=== PATIENT | female | born 1950 | race Two or more races ===

== ENCOUNTER → 2025-06-28 | Outpatient (CLI) | payer SELFPAY ==
[2025-06-28 13:13] LABS: Albumin, Serum 3.8 gm/dL (3.4-4.8); Anion Gap 10 (7-16); BUN/Creatinine Ratio 15 Ratio (12-20); Blood Urea Nitrogen 9 mg/dL (9-23); Calcium 9.1 mg/dL (8.3-10.6); Calcium (Corrected) 9.3 mg/dL (8.5-10.1); Carbon Dioxide 30.1 mMol/L (20.0-31.0); Chloride 106 mMol/L (98-107); Creatinine (Component) 0.6 mg/dL (0.6-1.3); Glucose 93 mg/dL (74-106); Osmolality,Calculated 289 (275-295); Phosphorous 3.6 mg/dL (2.4-5.1); Potassium 4.0 mMol/L (3.4-5.1); Sodium 146 mMol/L (136-145); eGFR > 60 See Note
== END | disposition home or self-care (01) ==
LOC: COPL 11:40
PROVIDERS: PCP Physician Assistant; Referring Provider Physician Assistant; Visit Provider Physician Assistant
DX: Q28.2 Arteriovenous malformation of cerebral vessels (principal)
CPT/HCPCS: 36415; 80069

== ENCOUNTER → 2025-06-29 | Outpatient (CLI) | payer MEDICARE, SELFPAY ==
--- NOTE | 2025-06-29 09:30 | XR_ITS ---
Examination: MRI of brain without intravenous contrast. MRI brain with intravenous contrast. Date and time of exam: June 29, 2025, 1032 hours INDICATIONS: Diagnosis arteriovenous malformation cerebral vessels, numbness weakness right side of the body stroke alert 05/21/2024, acute hemorrhage 5 x 4 x 3 cm medial left frontal parietal lobe, adjacent subarachnoid hemorrhage and subdural hemorrhage cerebral falx on CT brain scan 05/21/2024 Technique: Multiple axial and sagittal images of the brain to been obtained. Siemens high-resolution 1.52 Irais short bore scanner utilized. Sagittal sections, T1 weighted images, TR 500, TE 14, are performed. Axial sections proton-density and T2-weighted images have been obtained. Inversion recovery axial images, TR 9260, TE 111, TR 2500. Diffusion weighted images, axial sections, TR 4800, TE 128, B value 1000. Axial sections, ADC map, TR 4800, TE 128. Axial and coronal images were also obtained post 10 cc gadolinium administered intravenously. Findings:: Enlargement of the sella turcica is not present. The optic chiasm and infundibular stalk are not remarkable. There is no localized enlargement of the medulla or ruma. Fourth ventricle and cerebellar tonsils appear normal in position. No subacute area of hemorrhage density is seen. Fourth ventricle is midline. Mass in the cerebellopontine angle region is not evident. 7th and 8th nerve complexes exhibit symmetry Globes are symmetrical Orbital musculature including medial lateral rectus muscles do not exhibit abnormality Increased white matter signal is very prominent, old hemorrhage in the high medial left parietal lobe Effacement of the cortical sulcal markings is not identified. Mass effect upon the ventricular system is not identified. 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
--- NOTE | 2025-06-29 10:15 | XR_ITS ---
Examinations: MRA brain without intravenous contrast. 3-D vascular reconstructions Date and time of exam: June 29, 2025, 1032 hours Numbness weakness in the right side of the face post stroke 05/21/2024 Technique: MRA brain images without contrast obtained, including 3-D postprocessing, vascular maximum intensity projection images Findings: The cerebral images do not actually include the convexity of the brain The visualized anterior cerebral and middle cerebral and posterior cerebral branches are unremarkable No cerebral aneurysmal dilatation IMPRESSION: Limited angiographic reconstructions, which do not include the convexity of the parietal lobes at the site of the prior hemorrhage and enhancement in the medial high left parietal lobe noted on the brain MRI today Consider four-vessel cerebral angiography follow-up
== END | disposition home or self-care (01) ==
PROVIDERS: PCP Physician Assistant; Referring Provider Physician Assistant; Visit Provider Physician Assistant
DX: R90.82 White matter disease, unspecified (principal)
CPT/HCPCS: 70544; 70553; A9577

== ENCOUNTER 2025-08-22 11:05 | Emergency (ER) | payer MEDICARE, SELFPAY ==
[2025-08-22] VITALS (9 sets, daily range): BP systolic 127–176; BP diastolic 70–105; PULSE 66–80; RESP 15–22; TEMP 36.9; O2SAT 97–99; BMI 24.4
--- NOTE | 2025-08-22 11:26 | EKG_ITS ---
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
--- NOTE | 2025-08-22 11:43 | XR_ITS ---
Examination: CT brain head without contrast. 2-D sagittal coronal reconstructions Date and time of exam: August 22, 2025, 1229 hours, comparison 05/21/2024 INDICATIONS: Onset weakness and dizziness today CTDI: vol (mGy): 45.7 DLP: (mGycm): 893 Technique: Multiple CT axial sections of the brain have been obtained, 5 mm slice thickness. Contrast has not been administered. 2-D sagittal, coronal reconstructions have been obtained Low dose protocols were performed. One or more of the following dose reduction techniques were used; automated exposure control, adjustment of the mA and/or KV according to patient size, use of iterative reconstruction technique. Findings: 10 mm hemorrhage in the left frontal parietal lobe which appears to be new compared to the 05/21/2024 exam Encephalomalacia also in this region from the patient's prior larger hemorrhage Ventricles are mildly enlarged No mass effect upon the ventricular system Very subtle hyperdensity in the left caudate nucleus, which may also represent hemorrhage, image 18 No midline shift Cranial vault intact IMPRESSION: New area of hemorrhage in the left frontal parietal lobe Possible new subtle hemorrhage in the left caudate nucleus
--- NOTE | 2025-08-22 11:43 | PD.EDRME ---
Rapid Medical Screening Exam RME Arrival date/time: 08/22/25 11:05 75-year-old female with history significant for stroke presents to the department today for complaints of dizziness Chief Complaint: Dizziness Vital signs: Vital Signs Temperature 98.5 F 08/22/25 11:18 Pulse Rate 74 08/22/25 11:18 Respiratory Rate 16 08/22/25 11:18 Blood Pressure 156/70 H 08/22/25 11:18 Pulse Oximetry (%) 97 08/22/25 11:18 Oxygen Delivery Method Room Air 08/22/25 11:18 Vital signs reviewed by provider: Yes Exam: On exam well-appearing does not appear ill or toxic Clinical Impression: Lab work, imaging, EKG obtained
[2025-08-22] MEDS: MECLIZINE HCL 25 MG TABLET PO (12:12)
[2025-08-22 12:19] LABS: Basophils # (Auto) 0.1 Thou/mm3 (0.0-0.2); Basophils % (Auto) 1 % (0-2.5); Eosinophils # (Auto) 0.2 Thou/mm3 (0.0-0.5); Eosinophils % (Auto) 4 % (0-10); Hematocrit 38.1 % (36.0-46.0); Hemoglobin 12.5 g/dL (12.0-16.0); Immature Granulocytes Auto 0.01 Thou/mm3 (0.00-0.00); Lymphocytes # (Auto) 1.2 Thou/mm3 (1.0-4.8); Lymphocytes % (Auto) 33 % (10-50); Mean Corpuscular HGB Conc 32.8 g/dl (31.0-37.0); Mean Corpuscular Hemoglobin 30.9 pg (25.0-35.0); Mean Corpuscular Volume 94 fL (80-100); Monocytes # (Auto) 0.4 Thou/mm3 (0.0-0.8); Monocytes % (Auto) 11 % (0-12); Neutrophils # (Auto) 1.9 Thou/mm3 (1.8-7.7); Neutrophils % (Auto) 50 % (37-80); Nucleated Red Blood Cell # 0.00 Thou/mm3 (0.00-0.00); Nucleated Red Blood Cell % 0 /100 WBC (0); Platelet Count 195 Thou/mm3 (140-440); RDW Standard Deviation 43.1 fL (36.4-46.3); Red Blood Count 4.04 Miln/mm3 (4.00-5.20); White Blood Count 3.8 Thou/mm3 (3.6-11.0)
--- NOTE | 2025-08-22 12:30 | PC.NURSE ---
pt came in due to dizziness and vision changes and seeing spots on and off for a few months. pt stated that it gets worse with movements. pt placed on monitor/pulse oc and has iv line to left ac. pt was given med for dizziness po per md. family at bedside. pt pending results of ct and labs. pt has hx of cva in 2023 which she has weakness to rt side arm and unable to move rt leg and is in wheelchair.
[2025-08-22 12:36] LABS: INR 1.0 (0.9-1.3); Partial Thromboplastin Time 28.1 Seconds (22.0-36.0); Prothrombin Time 10.8 Seconds (9.0-12.2)
[2025-08-22 12:39] LABS: Alanine Aminotransferase 55 U/L (10-49); Albumin, Serum 4.3 gm/dL (3.4-4.8); Albumin/Globulin Ratio 1.8 (1.2-2.2); Alkaline Phosphatase 57 U/L (46-116); Anion Gap 8 (7-16); Aspartate Amino Transferase 70 U/L (0-34); BUN/Creatinine Ratio 17 Ratio (12-20); Bilirubin,Total 0.5 mg/dL (0.3-1.2); Blood Urea Nitrogen 10 mg/dL (9-23); Calcium 9.1 mg/dL (8.3-10.6); Calcium (Corrected) 9.1 mg/dL (8.5-10.1); Carbon Dioxide 32.7 mMol/L (20.0-31.0); Chloride 103 mMol/L (98-107); Creatinine (Component) 0.6 mg/dL (0.6-1.3); Estimated Creatinine Clearance 65.9 mL/min (>60); Globulin 2.4 gm/dL (2.3-3.5); Glucose 67 mg/dL (74-106); Magnesium 1.3 mg/dL (1.6-2.6); Osmolality,Calculated 283 (275-295); Potassium 3.1 mMol/L (3.4-5.1); Sodium 144 mMol/L (136-145); Total Protein 6.7 gm/dL (5.7-8.2); Troponin I < 0.020 ng/mL (0.0-0.045); eGFR > 60 See Note
[2025-08-22 12:53] LABS: B-Type Natriuretic Peptide 48 pg/mL (0-100)
--- NOTE | 2025-08-22 12:57 | PD.EDDIZZY ---
ED Dizzyness RME/HPI General Chief Complaint: Dizziness Stated Complaint: DIZZINESS, NUMBNESS IN LEGS Time Seen by Provider: 08/22/25 11:51 Arrival date/time: 08/22/25 11:05 RME / HPI RME / HPI Narrative: 08/22/25 11:05 75-year-old female with history significant for stroke presents to the department today for complaints of dizziness DR. 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 Reports the dizziness began several months ago and gradually worsening. Dizziness is aggravated with changing position and minimally improved with lying still. Patient mentioned she is scheduled to see a neurologist 10/2025 for the intermittent dizziness. Accompanied by numbness to her legs. Patient additionally complains of some urinary incontinence with foul smelling urine, no dysuria. Denies fevers, chills, sweats. Denies chest pain, cough, shortness of breath. Denies vomiting, diarrhea, constipation. Exam: On exam well-appearing does not appear ill or toxic Impression: Lab work, imaging, EKG obtained Related Data Home Medications ?Medication ?Instructions ?Recorded ?Confirmed clonazepam 1 mg tablet 1 mg PO QDAY 10/31/21 08/22/25 atorvastatin 10 mg tablet 10 mg PO DAILY 08/22/25 08/22/25 calcium 600 mg (as 1 tab PO DAILY 08/22/25 08/22/25 carbonate)-vitamin D3 10 mcg (400 unit) tablet duloxetine 30 mg capsule,delayed 60 mg PO DAILY 08/22/25 08/22/25 release levetiracetam 500 mg tablet 500 mg PO BID 08/22/25 08/22/25 Allergies Allergy/AdvReac Type Severity Reaction Status Date / Time erythromycin base (From Allergy Verified 08/22/25 11:10 E-Mycin) Review of Systems Review of Systems Systems Reviewed: All systems reviewed, normal except as documented Past Medical History Past Medical History NEUROLOGIC: Positive Neurological Disorders and Cerebrovascular Accident (2023 rt side deficit) REPRODUCTIVE: Positive Previous Pregnancies (x3) MUSCULOSKELETAL: Positive Musculoskeletal Disorders and Osteoporosis PSYCHO/SOCIAL: Positive Depression OTHER HISTORY: Positive Falls (fx neck) Family History FAMILY HISTORY: Positive Family Cancer (mother) Surgical History SURGICAL: Positive Gastric Bypass Surgery, of Back Surgery, Hysterectomy and Section (x2) Social History SMOKING STATUS: Never smoker ED Exam Narrative Physical exam: GENERAL APPEARANCE: alert and oriented x 4, well-developed, well-nourished, no acute distress HEENT: Normocephalic, atraumatic; pupils equal, round, reactive to light; EOMI; mucous membranes pink, moist; oropharynx clear NECK: Supple LUNGS: CTABL; no wheezes, no rales, no rhonchi HEART: Regular rate, regular rhythm; normal S1, S2; no murmurs ABDOMEN: non distended; normal BS; soft, no tenderness, no guarding, no rebound; no masses, no organomegaly, no hernia BACK: no CVA tenderness EXTREMITIES: right leg weakness; atraumatic; no edema NEUROLOGIC: awake; alert and oriented x4; cranial nerves II-XII grossly intact; right leg weakness otherwise no other deficits PSYCHIATRIC: appropriate mood and affect SKIN: warm, dry, normal color; no rashes Course Quality Measures none Orders Category Date Time Status EKG (ED ONLY) *Do not use* NOW Care 08/22/25 11:27 Completed Referral - Medical Office Technologist Stat Cons 08/22/25 12:[address] head/brain wo con Stat Exams 08/22/25 11:43 Completed EKG (ED Only) Stat Exams 08/22/25 11:26 Draft B-Type Natriuretic Peptide Stat Lab 08/22/25 11:54 Completed CBC Stat Lab 08/22/25 11:54 Completed Comprehensive Metabolic Panel Stat Lab 08/22/25 11:54 Completed Magnesium Stat Lab 08/22/25 11:54 Completed Partial Thromboplastin Time Stat Lab 08/22/25 11:54 Completed Prothrombin Time with INR Stat Lab 08/22/25 11:54 Completed Troponin I Stat Lab 08/22/25 11:54 Completed Urinalysis, C/S if Indicated Stat Lab 08/22/25 12:52 Completed Urine Culture Stat Lab 08/22/25 12:52 Received Magnesium Sulfate 2 GM Ivpb [Magnesium Sulfate Ivpb] Med 08/22/25 12:59 Discontinued 2 gm in 50 ml IV X1 Meclizine HCl [Antivert] Med 08/22/25 12:03 Discontinued 25 mg PO X1 ONE POTASSIUM CHL 10 mEq IVPB [Kcl Ivpb] Med 08/22/25 13:00 Discontinued 10 meq in 100 ml IV Q1H hydrALAZINE INJ [Apresoline Inj] Med 08/22/25 13:30 Discontinued 10 mg IVP X1 ONE levETIRAcetam INJ [Keppra Inj] Med 08/22/25 13:46 Discontinued 1,000 mg IVP X1 ONE Vital Signs Vital signs: Vital Signs Temperature 98.5 F 08/22/25 11:18 Pulse Rate 74 08/22/25 11:18 Respiratory Rate 16 08/22/25 11:18 Blood Pressure 156/70 H 08/22/25 11:18 Pulse Oximetry (%) 97 08/22/25 11:18 Oxygen Delivery Method Room Air 08/22/25 11:18 Pulse ox is 97% on room air which is adequate. Dizziness MDM Narrative MDM Narrative:: I, Lorena Cummings, am scribing for and in the presence of Dr. De La Cruz. 1300p: I spoke with transfer nurse and neurosurgeon Dr. Deluca at [facility]. Discussed patients PMHx, HPI, ED course, exam findings, labs, and radiology results. State because of the possible AVM, they are unable to accept the patient for transfer. 1345p: Patient has been accepted at [facility] by ED physician Dr. Pelletier. 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 ) Lab and/or radiology exams considered but not ordered:: None Interpretation Summary: Ordering Physician: Pam KOCH)Familia NP Date of Service: 08/22/25 Procedure(s): CT head/brain wo con Accession Number(s): [id number] cc: Familia Orozco NP, NP; Carloz Dillard MD~ Examination: CT brain head without contrast. 2-D sagittal coronal reconstructions Date and time of exam: August 22, 2025, 1229 hours, comparison 05/21/2024 INDICATIONS: Onset weakness and dizziness today CTDI: vol (mGy): 45.7 DLP: (mGycm): 893 Technique: Multiple CT axial sections of the brain have been obtained, 5 mm slice thickness. Contrast has not been administered. 2-D sagittal, coronal reconstructions have been obtained Low dose protocols were performed. One or more of the following dose reduction techniques were used; automated exposure control, adjustment of the mA and/or KV according to patient size, use of iterative reconstruction technique. Findings: 10 mm hemorrhage in the left frontal parietal lobe which appears to be new compared to the 05/21/2024 exam Encephalomalacia also in this region from the patient's prior larger hemorrhage Ventricles are mildly enlarged No mass effect upon the ventricular system Very subtle hyperdensity in the left caudate nucleus, which may also represent hemorrhage, image 18 No midline shift Cranial vault intact IMPRESSION: New area of hemorrhage in the left frontal parietal lobe Possible new subtle hemorrhage in the left caudate nucleus Dictated By: Carloz Dillard MD Signed By: <Electronically signed by Carloz Dilalrd MD in OV> 08/22/25 1257 Medications / Prescriptions Medications or Prescriptions considered but not ordered:: None Medication administrations:: Medication Administration History Discontinued Medications Hydralazine HCl (Hydralazine Inj 20 Mg/Ml Vial) 10 mg IVP X1 ONE Stop: 08/22/25 13:31 Last Admin: 08/22/25 13:46 Dose: 10 mg Documented By: FRANTZ Magnesium Sulfate (Magnesium Sulfate Ivpb) 2 gm in 50 mls @ 25 mls/hr IV X1 ONE Stop: 08/22/25 14:58 Last Infusion: 08/22/25 14:26 Dose: Infused Documented By: Admin: 08/22/25 13:45 Dose: 25 mls/hr Documented By: TONY Potassium Chloride (Kcl Ivpb) 10 meq in 100 mls @ 100 mls/hr IV Q1H VIKTORIYA Stop: 08/22/25 15:59 Last Infusion: 08/22/25 14:48 Dose: Infused Documented By: Admin: 08/22/25 13:44 Dose: 100 mls/hr Documented By: TONY Levetiracetam (Levetiracetam Inj 100 Mg/Ml Vial 5ml) 1,000 mg IVP X1 ONE Stop: 08/22/25 13:47 Last Admin: 08/22/25 13:56 Dose: 1,000 mg Documented By: TONY Meclizine HCl (Meclizine Hcl 25 Mg Tablet) 25 mg PO X1 ONE Stop: 08/22/25 12:04 Last Admin: 08/22/25 12:12 Dose: 25 mg Documented By: TONY See above Consultations Consultation(s) initiated? (list below): Yes Consultation #1 (Physician, Specialty, Details): See MDM Diagnosis Most likely diagnosis given after review of the tests above:: Hemorrhagic CVA Admission Indicated Admission indicated?: not indicated Explain why admission is indicated or not indicated:: Txfer for neurosurgery Admission Request Was there a request for admission?: No Disposition Plan Disposition Plan: Transfer Discharge Plan Plan Patient Disposition: [facility] Facility Pt Being Transferred to: [facility] Service Needed for Transfer: Neurosurgery Prescriptions/Referrals Prescriptions/Med Rec: No Action clonazepam 1 mg tablet 1 mg PO QDAY atorvastatin 10 mg tablet 10 mg PO DAILY levetiracetam 500 mg tablet 500 mg PO BID duloxetine 30 mg capsule,delayed release(DR/EC) 60 mg PO DAILY Patient Comments: TAKE ONE CAPSULE BY MOUTH EVERY DAY calcium carbonate-vitamin D3 600 mg-10 mcg (400 unit) tablet 1 tab PO DAILY Patient Comments: TAKE TWO TABLETS BY MOUTH EVERY DAY VITAMIN Referrals: No Primary/Family,Physician [Primary Care Provider] - In 1 week Problem List Clinical Impression: Hemorrhagic stroke Patient/Caregiver Discharge Instructions Print Language: Kiswahili Stand Alone Forms: Whit Award Info., Patient Portal Info Letter
[2025-08-22 13:03] LABS: Collection Type, Urine Clean Catch
[2025-08-22 13:15] LABS: Bacteria,Urine 4+; Bilirubin,Urine Negative (Negative); Blood,Urine Negative (Negative); Clarity,Urine Clear (Clear/Hazy); Color,Urine Lt-Yellow (Lt Yel-Yel); Culture Indicated,Urine Yes; Glucose, Urine Negative (Negative); Ketones,Urine Negative (Negative); Leukocyte Esterase,Urine Negative (Negative); Nitrite,Urine Negative (Negative); PH,Urine 6.0 (5.0-7.0); Protein,Urine Negative (Neg - Trace); RBC,Urine 1 /hpf (0-3); Specific Gravity,Urine 1.006 (1.001-1.035); Squamous Epithelial Cell,Urine < 1 /hpf (0-5); Urobilinogen,Urine Negative mg/dL (0.0-1.0); WBC,Urine 2 /hpf (0-5)
--- NOTE | 2025-08-22 13:37 | PC.CM ---
1340 Transfer nurse Ronna at [facility] called and patient has been accepted by Dr. Afshin Villalta at [facility]. She will go to the ED and the number to call and give report is [phone]. I will make transfer packet and call [facility] for state transfer. REACH is not available at this time. 1321 I conacted [facility] and initiated a transfer. 1253 I received a referal to transfer patient for hemorrhagic stroke. I called [facility] and had Dr. De La Cruz speak to [facility] ED docor Dr. Deluca. [facility] declined stating patient may need IR for angiogram.
[2025-08-22] MEDS: POTASSIUM CHL 10 mEq IVPB 10 MEQ/100 ML BAG 100 MEQ IV (13:44)
[2025-08-22] MEDS: Magnesium Sulfate 2 GM Ivpb 2 GM/50 ML BAG IV (13:45)
[2025-08-22] MEDS: hydrALAZINE INJ 20 MG/ML VIAL 10 MG IVP (13:46)
[2025-08-22] MEDS: levETIRAcetam INJ 100 MG/ML VIAL 5ML 1000 MG IVP (13:56)
--- NOTE | 2025-08-22 14:46 | PC.NURSE ---
report given to Jean Pierre agee at [facility] er to er. ambulance [facility] 700
== END 2025-08-22 15:03 | disposition short-term general hospital (02) ==
LOC: SERX 14:02
PROVIDERS: Nurse Practitioner Primary Care; Emergency Provider Emergency Medicine
DX: I62.9 Nontraumatic intracranial hemorrhage, unspecified (principal); G81.91 Hemiplegia, unspecified affecting right dominant side; R94.31 Abnormal electrocardiogram [ECG] [EKG]; Z75.1 Person awaiting admission to adequate facility elsewhere
CPT/HCPCS: 36415; 70450; 80053; 81001; 83735; 83880; 84484; 85025; 85610; 85730; 87086; 93005; 96365; 96375; 99284; J0360; J1953; J3475; J3480; A9270

== ENCOUNTER 2025-09-07 18:47 | Emergency (ER) | payer MEDICARE, SELFPAY ==
[2025-09-07 19:21] VITALS: PULSE 98; RESP 20; O2SAT 99
--- NOTE | 2025-09-07 19:21 | PD.EDAMS ---
Altered Mental Status RME/HPI General Chief Complaint: Altered Mental Status Stated Complaint: AMS Time Seen by Provider: 09/07/25 19:13 Arrival date/time: 09/07/25 18:47 Mode of arrival: EMS Limitations: physical limitation RME / HPI complaint: confusion Onset (ago): hour(s) (1) Timing confirmed by: other (SNF staff) Consistency of symptoms: waxing and waning Context: history of similar presentation Associated symptoms: cough and headaches RME / HPI narrative: DR. SAMANO MAIN ED EVALUATION: 75 y/o female with Hx of CVA and Seizures BIBA from [facility] presents to ED with stated complaint by nursing staff of confusion x approximately 1 hour. Patient reports intermittent confusion for 2 days. In addition, patient also reports cough x 2 days and a severe headache yesterday. Denies chest pain and shortness of breath. Patient has residual right-sided deficits from hemorrhagic stroke earlier this month. Per EMS, blood sugar on scene was 143 mg/dL and felt warm to touch. Patient was able to hold conversation, but was unaware to time. Patient is not able to ambulate independently. Related Data Home Medications ?Medication ?Instructions ?Recorded ?Confirmed clonazepam 1 mg tablet 1 mg PO QDAY 10/31/21 08/22/25 atorvastatin 10 mg tablet 10 mg PO DAILY 08/22/25 08/22/25 calcium 600 mg (as 1 tab PO DAILY 08/22/25 08/22/25 carbonate)-vitamin D3 10 mcg (400 unit) tablet duloxetine 30 mg capsule,delayed 60 mg PO DAILY 08/22/25 08/22/25 release levetiracetam 500 mg tablet 500 mg PO BID 08/22/25 08/22/25 Allergies Allergy/AdvReac Type Severity Reaction Status Date / Time erythromycin base (From Allergy Verified 08/22/25 11:10 E-Mycin) Review of Systems Review of Systems Systems Reviewed: All systems reviewed, normal except as documented Past Medical History Past Medical History NEUROLOGIC: Positive Cerebrovascular Accident (2023 rt side deficit) and Seizures (oct 2024) REPRODUCTIVE: Positive Previous Pregnancies (x3) MUSCULOSKELETAL: Positive Musculoskeletal Disorders and Osteoporosis PSYCHO/SOCIAL: Positive Depression OTHER HISTORY: Positive Falls (fx neck) Family History FAMILY HISTORY: Positive Family Cancer (mother) Surgical History SURGICAL: Positive Gastric Bypass Surgery, Hysterectomy and Section (x2) ED Exam Narrative Physical exam: Generally patient is currently alert oriented x 4 no obvious distress, neurologic exam shows the patient be alert and orient x 4 with 4/5 muscle strength to right upper and right lower extremity and 5/5 muscle strength to the left upper and left lower extremity. Heart regular rate and rhythm, lungs clear to auscultation equal bilaterally, abdomen soft bowel sounds present nondistended nontender, skin is warm pale and dry without rash General Limitations: Present physical limitation Course Quality Measures none Orders Category Date Time Status Bedside COVID-19 Antigen Test NOW Care 09/07/25 19:22 Active Bedside Influenza A&B Antigen Test NOW Care 09/07/25 19:22 Completed EKG (ED ONLY) *Do not use* NOW Care 09/07/25 19:[address] head/brain wo con Stat Exams 09/07/25 19:22 Completed EKG (ED Only) Stat Exams 09/07/25 19:22 Draft XR chest 1V portable Stat Exams 09/07/25 19:22 Taken CBC Stat Lab 09/07/25 19:45 Completed CMP [Comprehensive Metabolic Panel] Stat Lab 09/07/25 19:45 Completed Troponin I Stat Lab 09/07/25 19:45 Completed UA [Urinalysis] Stat Lab 09/07/25 19:25 Completed Vital Signs Vital signs: Vital Signs Temperature 99.6 F 09/07/25 19:24 Pulse Rate 87 09/07/25 19:24 Respiratory Rate 20 09/07/25 19:24 Blood Pressure 97/58 L 09/07/25 19:24 Pulse Oximetry (%) 91 L 09/07/25 19:24 Oxygen Delivery Method Room Air 09/07/25 19:24 Altered Mental Status MDM Narrative MDM Narrative:: Scribe Attestation: I, Funmilayo Stroud, am scribing for and in the presence of Dr. Samano. Patient will be discharged back to her care facility. EKG did show normal sinus rhythm at a rate of 84 without ischemic change or ectopy. Provider Notation: Although this document has been carefully reviewed, there may still be some phonetic and other typographical errors. These errors are purely grammatical due to imperfections in the software program and should not be construed in any way to compromise the substance of the patient's medical care during this visit. I interpreted all labs. Urine showed 4+ bacteria but only showed 7 white blood cells. Earlier this month the patient had a similar appearing urine with a culture showing contamination. I believe this also to be contamination. Influenza A was positive. COVID was negative. Head CT shows no new bleed and any probable left posterior parietal calcification. Patient remained alert and oriented throughout the entire ER stay. She is afebrile at this time. Patient data [facility] records [facility] (Reviewed prior ED records from 08/22/25. Patient was seen for Hemorrhagic stroke.), EMS form and [facility] records Clinical information provided by:: patient and EMS Social determinants that could affect healthcare access:: housing (SNF) Patient has the following chronic illnesses:: Seizures, Osteoporosis, Depression How is presenting disease/condition affected by chronic disease/condition?: exacerbated by Evaluation data The following diagnostics were reviewed and interpreted by me:: lab results, radiology exam(s) and EKG tracing(s) Lab and/or radiology exams considered but not ordered:: None Interpretation Summary: RADIOLOGY Head/Brain CT: Findings: No significant ventricular enlargement. No change in low-density area left parietal lobe with central hyperdensity, supporting calcium rather than hemorrhage at this site No mass effect or midline shift Basal cisterns are not remarkable. Fourth ventricle is midline. Cranial vault intact. Impression: Stable hyperdense area with surrounding low density in the left frontal parietal lobe, the hyperdense area may represent calcium No interval mass effect If the patient is clinically stable, suggest 2-week follow-up CT brain scan Chest X-Ray: Pending official radiology report. Medications / Prescriptions Medications or Prescriptions considered but not ordered:: None Medication administrations:: See above if any. Consultations Consultation(s) initiated? (list below): No Diagnosis Differential diagnosis altered mental status: altered mental status, delirium, hypoglycemia, hyponatremia, subarachnoid hemorrhage, sepsis and other (UTI, Cystitis, Pyelonephritis) Most likely diagnosis given after review of the tests above:: None Admission Indicated Admission indicated?: not indicated Admission Request Was there a request for admission?: No Disposition Plan Disposition Plan: Discharge Discharge Attestation Discharge Attestation: The patient and all family members were given an opportunity to ask questions and understood the discharge instructions. Discharge instructions specifically effects, indications for sooner follow up or return to the emergency department, and the expected course of current diagnosis. Patient condition: Stable Discharge Plan Plan Patient Disposition: Xfer Skilled Nsg Fac (SNF) Prescriptions/Referrals Prescriptions/Med Rec: No Action clonazepam 1 mg tablet 1 mg PO QDAY atorvastatin 10 mg tablet 10 mg PO DAILY levetiracetam 500 mg tablet 500 mg PO BID duloxetine 30 mg capsule,delayed release(DR/EC) 60 mg PO DAILY Patient Comments: TAKE ONE CAPSULE BY MOUTH EVERY DAY calcium carbonate-vitamin D3 600 mg-10 mcg (400 unit) tablet 1 tab PO DAILY Patient Comments: TAKE TWO TABLETS BY MOUTH EVERY DAY VITAMIN Referrals: No Primary/Family,Physician [Primary Care Provider] - In 1 week Problem List Clinical Impression: Influenza A Patient/Caregiver Discharge Instructions Education Materials: ED Influenza (Adult) Additional Instructions: Patient has the flu. Please use Tylenol for any fever. Follow-up with your doctor. Continue current medications. Print Language: Hungarian Stand Alone Forms: Whit Award Info., Patient Portal Info Letter
--- NOTE | 2025-09-07 19:22 | XR_ITS ---
Examination: CT brain head without contrast. 2-D sagittal coronal reconstructions Date and time of exam: September 07, 2025, 2008 hours COMPARISON: August 22, 2025 CTDI: vol (mGy): 45.2 DLP: (mGycm): 833 Technique: Multiple CT axial sections of the brain have been obtained, 5 mm slice thickness. Contrast has not been administered. 2-D sagittal, coronal reconstructions have been obtained Low dose protocols were performed. One or more of the following dose reduction techniques were used; automated exposure control, adjustment of the mA and/or KV according to patient size, use of iterative reconstruction technique. Findings: No significant ventricular enlargement. No change in low-density area left parietal lobe with central hyperdensity, supporting calcium rather than hemorrhage at this site No mass effect or midline shift Basal cisterns are not remarkable. Fourth ventricle is midline. Cranial vault intact. Impression: Stable hyperdense area with surrounding low density in the left frontal parietal lobe, the hyperdense area may represent calcium No interval mass effect If the patient is clinically stable, suggest 2-week follow-up CT brain scan
--- NOTE | 2025-09-07 19:22 | XR_ITS ---
EXAMINATION: AP chest single view TECHNIQUE: AP portable upright chest single view Date and time: September 07, 2025, 192 hours INDICATIONS: Chest pain altered mental status today. FINDINGS: No aspiration pneumonia. Normal heart size No pulmonary edema Prominent osteopenia IMPRESSION:: No aspiration pneumonia or pulmonary edema
--- NOTE | 2025-09-07 19:22 | EKG_ITS ---
[facility] Test Date: 2025-09-07 Pat Name: JAROD CEDEÑO Department: Room: - Gender: Female Abstract Maker: : 1950 Requested By: Hima Loving Order Number: [id number] Reading MD: Hima Loving Measurements Intervals [place] Rate: 84 P: 31 IN: 169 QRS: 16 QRSD: 89 T: 75 QT: 357 QTc: 424 Interpretive Statements SINUS RHYTHM NONSPECIFIC T-WAVE ABNORMALITY Compared to ECG 08/22/2025 11:35:24 No significant changes /store/S0/[id number].pdf
[2025-09-07 19:23] VITALS: BMI 20.5
[2025-09-07 19:24] VITALS: BP 97/58; PULSE 87; RESP 20; TEMP 37.6; O2SAT 91
[2025-09-07 19:50] LABS: Collection Type, Urine Catheter
[2025-09-07 19:51] LABS: Basophils # (Auto) 0.0 Thou/mm3 (0.0-0.2); Basophils % (Auto) 1 % (0-2.5); Eosinophils # (Auto) 0.0 Thou/mm3 (0.0-0.5); Eosinophils % (Auto) 0 % (0-10); Hematocrit 32.5 % (36.0-46.0); Hemoglobin 10.9 g/dL (12.0-16.0); Immature Granulocytes Auto 0.02 Thou/mm3 (0.00-0.00); Lymphocytes # (Auto) 0.4 Thou/mm3 (1.0-4.8); Lymphocytes % (Auto) 12 % (10-50); Mean Corpuscular HGB Conc 33.5 g/dl (31.0-37.0); Mean Corpuscular Hemoglobin 31.3 pg (25.0-35.0); Mean Corpuscular Volume 93 fL (80-100); Monocytes # (Auto) 0.4 Thou/mm3 (0.0-0.8); Monocytes % (Auto) 10 % (0-12); Neutrophils # (Auto) 2.8 Thou/mm3 (1.8-7.7); Neutrophils % (Auto) 77 % (37-80); Nucleated Red Blood Cell # 0.00 Thou/mm3 (0.00-0.00); Nucleated Red Blood Cell % 0 /100 WBC (0); Platelet Count 171 Thou/mm3 (140-440); RDW Standard Deviation 44.5 fL (36.4-46.3); Red Blood Count 3.48 Miln/mm3 (4.00-5.20); White Blood Count 3.7 Thou/mm3 (3.6-11.0)
[2025-09-07 20:01] LABS: Bacteria,Urine 4+; Bilirubin,Urine Negative (Negative); Blood,Urine Negative (Negative); Clarity,Urine Clear (Clear/Hazy); Color,Urine Yellow (Lt Yel-Yel); Glucose, Urine Negative (Negative); Hyaline Casts,Urine 1 /hpf (0-1); Ketones,Urine Trace (Negative); Leukocyte Esterase,Urine Negative (Negative); Nitrite,Urine Negative (Negative); PH,Urine 6.0 (5.0-7.0); Protein,Urine Trace (Neg - Trace); RBC,Urine 7 /hpf (0-3); Specific Gravity,Urine 1.026 (1.001-1.035); Squamous Epithelial Cell,Urine 1 /hpf (0-5); Urobilinogen,Urine 3.0 mg/dL (0.0-1.0); WBC,Urine 2 /hpf (0-5)
[2025-09-07 20:10] LABS: Alanine Aminotransferase 74 U/L (10-49); Albumin, Serum 3.8 gm/dL (3.4-4.8); Albumin/Globulin Ratio 1.7 (1.2-2.2); Alkaline Phosphatase 55 U/L (46-116); Anion Gap 9 (7-16); Aspartate Amino Transferase 51 U/L (0-34); BUN/Creatinine Ratio 17 Ratio (12-20); Bilirubin,Total 0.4 mg/dL (0.3-1.2); Blood Urea Nitrogen 12 mg/dL (9-23); Calcium 8.6 mg/dL (8.3-10.6); Calcium (Corrected) 8.8 mg/dL (8.5-10.1); Carbon Dioxide 27.0 mMol/L (20.0-31.0); Chloride 101 mMol/L (98-107); Creatinine (Component) 0.7 mg/dL (0.6-1.3); Estimated Creatinine Clearance 51.4 mL/min (>60); Globulin 2.2 gm/dL (2.3-3.5); Glucose 114 mg/dL (74-106); Osmolality,Calculated 274 (275-295); Potassium 3.5 mMol/L (3.4-5.1); Sodium 137 mMol/L (136-145); Total Protein 6.0 gm/dL (5.7-8.2); Troponin I 0.024 ng/mL (0.0-0.045); eGFR > 60 See Note
--- NOTE | 2025-09-07 20:16 | PC.NURSE ---
Patient came in to ED from [facility] via ambulance. Per [facility] personnel, patient started feeling confused about 45 minutes prior to patient arrival to ED. Patient is awake, alert, mild confusion noted. Patient endorses that she has been feeling confused for the past two days. Oral temperature 99.6, vital signs within range. Patient tested positive for influenza A, other testing pending.
--- NOTE | 2025-09-07 20:21 | PC.NURSE ---
Patient's son ([place]) called for updates. He was informed of patient's current health status, and was informed that we are still waiting on some test results to come back, he was encouraged to call back in about two hours for more updates.
--- NOTE | 2025-09-07 21:28 | PC.NURSE ---
Patient is discharged, she will be going back to [facility]. This Nurse called patient's son for new updates but there was no answer, unable to leave a voicemail.
--- NOTE | 2025-09-07 22:30 | EDNOTE_ITS ---
Emergency Room Addendum Addendum Narrative: Patient has been somewhat hypotensive here in the emergency room. I do not believe this patient to be septic. She is not tachycardic or tachypneic. There is no leukocytosis. There is no fever. Patient is alert and oriented and feels well and wishes to go back to her care facility. [facility] and this was relayed to the patient and the patient fully understands this.
[2025-09-07] MEDS: SODIUM CHLORIDE 0.9% 1000 ML 1,000 ML 999 ML IV (22:41)
--- NOTE | 2025-09-08 00:31 | PD.EDADDENDU ---
Emergency Room Addendum Addendum Narrative: Patient received 1 L of IV normal saline prior to discharge. Blood pressure caleb to 99/57. Patient is stable for discharge. Again, I do not believe this patient to be septic. All other vital signs are stable.
[2025-09-08 00:36] VITALS: BP 110/65; PULSE 65; RESP 18; TEMP 37.3; O2SAT 96
[2025-09-08 01:30] VITALS: BP 101/75; PULSE 62; O2SAT 92
[2025-09-08 01:35] VITALS: PULSE 62; RESP 19; TEMP 37.2
== END 2025-09-08 01:39 | disposition skilled nursing facility (03) ==
PROVIDERS: Emergency Provider Emergency Medicine
DX: J10.1 Influenza due to other identified influenza virus with other respiratory manifestations (principal); R94.31 Abnormal electrocardiogram [ECG] [EKG]; I95.9 Hypotension, unspecified
CPT/HCPCS: 36415; 70450; 71045; 80053; 81001; 84484; 85025; 87502; 87635; 93005; 96360; 99284; J7030